=== PATIENT | male | born 1965 | race Caucasian/White ===

== ENCOUNTER 2024-08-13 15:15 | Outpatient (OUT) | payer SELFPAY | END 2024-08-13 15:16 | disposition home or self-care (01) | LOC: PST 15:15 | PROVIDERS: Visit Provider Surgery | DX: Z01.818 Encounter for other preprocedural examination (principal); Z12.11 Encounter for screening for malignant neoplasm of colon ==

== ENCOUNTER 2024-08-28 06:26 | Day surgery (SDC) | payer BC, SELFPAY ==
[2024-08-28 06:56] LABS: Glucometer 97 mg/dL (74-106)
[2024-08-28 06:57] VITALS: BP 161/88; PULSE 63; TEMP 35.8; O2SAT 98; BMI 38.5
[2024-08-28] MEDS: 0.9 % SODIUM CHLORIDE 500 ML 50 ML IV (07:14)
[2024-08-28 07:49] VITALS: BP 141/68; PULSE 63; O2SAT 96
--- NOTE | 2024-08-28 07:51 | W.PM.PROCNOT ---
Date of procedure: 08/28/24 Pre-op diagnosis: screening c-scope Post-op diagnosis: same as pre-op Procedure: Previous colonoscopy: 2019 procedure: screening colonoscopy The patient was given IV conscious sedation.? The patient's SPO2 remained above 90% throughout the procedure. The colonoscope was inserted per rectum and advanced under direct vision to the cecum without difficulty.? The prep was good.? Findings: Terminal ileum os: normal Cecum/Ascending colon: normal Transverse colon: normal Descending/Sigmoid colon: normal Rectum/Anus: examined in normal and retroflexed positions and was normal Withdrawal Time was (minutes): 10 The colon was decompressed and the scope was removed.? The patient tolerated the procedure well. Recommendations/Plan: 1.? Lifestyle and dietary modifications as discussed 2.? F/U in 7-10 years for repeat c-scope 3.? Discussed with the family Anesthesia: MAC Surgeon: Ariel Shelley Estimated blood loss (mL): 0 Pathology: none sent Condition: stable Disposition: PACU
[2024-08-28 08:08] VITALS: BP 138/85; PULSE 66; O2SAT 99
== END 2024-08-28 08:20 | disposition home or self-care (01) ==
PROVIDERS: Visit Provider Surgery
PROC: (CPT 812; principal; 2024-08-28 07:30)
DX: Z12.11 Encounter for screening for malignant neoplasm of colon (principal); Z86.0100 Personal history of colon polyps, unspecified; E78.5 Hyperlipidemia, unspecified; I10 Essential (primary) hypertension
CPT/HCPCS: 45378; 36415; 82948; J2704

== ENCOUNTER 2025-01-14 08:57 | Outpatient (OUT) | payer BC, SELFPAY ==
--- NOTE | 2025-01-14 09:01 | ECG_ITS ---
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 Measurements Intervals [place] Rate: 70 P: 105 CO: 220 QRS: -28 QRSD: 116 T: 26 QT: 370 QTc: 401 Interpretive Statements SINUS RHYTHM WITH FIRST DEGREE AV BLOCK BORDERLINE LEFT AXIS DEVIATION [QRS AXIS < -20] MODERATE INTRAVENTRICULAR CONDUCTION DELAY [110+ ms QRS DURATION] Abnormal ECG No previous ECG available for comparison Electronically Signed On 01-14-2025 16:08:03 EDT by FRANCISCA CHAPIN M.D.
[2025-01-14 10:13] LABS: Anion Gap 13.9; BUN Creatinine Ratio 15.7; Carbon Dioxide 28.3 mmol/L (21.0-32.0); Chloride 102 mmol/L (98-107); Estimated GFR (African America >60 (>=60 mL/min/1.73m^2); Estimated GFR (Non-African Ame >60 (>=60 mL/min/1.73m^2); Glucose 127 mg/dL (74-106); Potassium 4.2 mmol/L (3.5-5.1); Sodium 140 mmol/L (136-145)
[2025-01-14 10:22] LABS: Basophils Absolute Auto 0.1 10^3/uL (0.0-0.1); Basophils Percent Auto 0.9 % (0.2-2.0); Eosinophils Absolute Auto 0.2 10^3/uL (0.0-0.7); Eosinophils Percent Auto 3.4 % (0.9-7.0); Hematocrit 44.5 % (42.0-54.0); Hemoglobin 15.8 g/dL (14.0-18.0); Immature Granulocytes Abs Auto 0.02 10^3/uL (0.00-0.03); Immature Granulocytes Pct Auto 0.4 % (0.0-0.5); Lymphocytes Absolute Auto 1.9 10^3/uL (1.2-3.8); Lymphocytes Percent Auto 33.1 % (20.5-60.0); Mean Corpuscular HGB Conc 35.5 g/dL (29.9-35.2); Mean Corpuscular Hemoglobin 31.1 pg (25.9-34.0); Mean Corpuscular Volume 87.6 fL (80.0-94.0); Mean Platelet Volume 9.5 fL (9.5-13.5); Monocytes Absolute Auto 0.5 10^3/uL (0.3-0.8); Monocytes Percent Auto 9.3 % (1.7-12.0); Neutrophils Percent Auto 52.9 % (43.0-75.0); Platelet Count 235 10^3/uL (150-450); Red Blood Count 5.08 10^6/uL (4.70-6.10); Red Cell Distribution Width 11.9 % (11.0-15.0); White Blood Count 5.6 10^3/uL (4.0-11.0)
== END 2025-01-14 08:58 | disposition home or self-care (01) ==
LOC: PST 08:58
PROVIDERS: Visit Provider Otolaryngology
DX: Z01.810 Encounter for preprocedural cardiovascular examination (principal); Z01.812 Encounter for preprocedural laboratory examination; H69.93 Unspecified Eustachian tube disorder, bilateral
CPT/HCPCS: 80048; 85025; 93005

== ENCOUNTER 2025-01-24 08:29 | Day surgery (SDC) | payer BC, SELFPAY ==
[2025-01-14 09:21] VITALS: BP 130/82; PULSE 78; TEMP 36.6; O2SAT 97; BMI 40.0
[2025-01-24] VITALS (9 sets, daily range): BP systolic 118–143; BP diastolic 71–89; PULSE 63–79; TEMP 36.1–36.2; O2SAT 90–99
--- NOTE | 2025-01-24 | OP_ITS ---
OPERATION DATE: 01/24/2025 PRIMARY CARE PROVIDER: Kathie Cason CNP SURGEON: Marielena Gardner M.D. PREOPERATIVE DIAGNOSIS: Bilateral eustachian tube dysfunction and right otitis media with effusion. POSTOPERATIVE DIAGNOSIS: Bilateral eustachian tube dysfunction and right otitis media with effusion. PROCEDURE: Bilateral myringotomy and tubes with microdissection, placement of T-tubes and a nasal endoscopy. ANESTHESIA: General LMA. COMPLICATIONS: None. FINDINGS: Right serous effusion, left middle ear dry, and no nasopharyngeal path evident. INDICATIONS: This [id number] man presented with eustachian tube dysfunction and otitis media with effusion, unresponsive to aggressive medical management. PROCEDURE: Patient identified in the holding area and taken back to the OR where he was placed in the supine position. After induction of general anesthesia, Afrin soaked pledgets were placed in each side of the nose. Attention was then turned to the left ear. An anterior radial myringotomy was performed, and a modified Neville?s T-tube was folded and inserted through the myringotomy and opened in the middle ear using microdissection. Attention was then turned to the right ear and the same procedure performed. Attention was then turned to the nose. The Afrin was removed from the nose, and the nasal endoscope passed along the left nose to inspect the nasopharynx. There was no significant pathology found. The patient was then awakened and taken to the recovery room in good condition. YESSICA
[2025-01-24 08:52] LABS: Glucometer 101 mg/dL (74-106)
[2025-01-24] MEDS: LACTATED RINGER'S SOLUTION 1,000 ML 50 ML IV (09:10)
[2025-01-24] MEDS: OXYMETAZOLINE HCL 0.05% NASAL SPRAY 2 SPRAY NS (09:29)
[2025-01-24] MEDS: CIPROFLOXACIN HCL/DEXAMETH 0.3%/0.1% OTIC SUSP 150 DROP/7.5 ML BOTTLE OT (09:36)
== END 2025-01-24 11:00 | disposition home or self-care (01) ==
PROVIDERS: Visit Provider Otolaryngology
PROC: (CPT 126; principal; 2025-01-24 09:30)
DX: H69.93 Unspecified Eustachian tube disorder, bilateral (principal); H90.0 Conductive hearing loss, bilateral; H93.11 Tinnitus, right ear; I10 Essential (primary) hypertension; H65.91 Unspecified nonsuppurative otitis media, right ear; E78.5 Hyperlipidemia, unspecified
CPT/HCPCS: 31231; 69436; 36415; 82948; J1100; J2250; J2405; J2704; J3010